=== PATIENT | male | born 1985 | race African-American/Black ===

== ENCOUNTER 2019-09-19 16:21 | Emergency (ER) | payer SELFPAY ==
[~2019-09-19] VITALS: Ht 182.9 cm; Wt 112.9 kg
[2019-09-19] MEDS ORDERED: ASPirin 81 mg TAB PO ONE (16:30)
[2019-09-19] MEDS ORDERED: ACETAMINOPHEN 500 MG TAB PO ONE (16:45)
[2019-09-19] MEDS ORDERED: cefTRIAXone SOD 1,000 MG VL ONE (16:45)
[2019-09-19] MEDS ORDERED: cefTRIAXone W LIDOCAINE 1 GM IM IM ONE (16:45)
[2019-09-19 17:05] LABS: Basophils # (auto) 0 uL; Basophils % (auto) 0.8 % (0.0-2.0); Eosinophils # (auto) 0 uL; Eosinophils % (auto) 0.3 % (0.0-7.0); Hematocrit 47.2 % (41.0-53.0); Hemoglobin 15.9 g/dL (13.5-17.5); Lymphocytes # (auto) 1.4 uL; Lymphocytes % (auto) 37.6 % (10.0-50.0); Mean Corpuscular Hemoglobin 27.5 pg (28.0-32.0); Mean Corpuscular Hgb Conc. 33.7 g/dL (32.0-36.0); Mean Corpuscular Volume 81.6 fL (80.0-100.0); Monocytes # (auto) 0.5 uL; Monocytes % (auto) 14.7 % (0.0-12.0); Neutrophils # (auto) 1.7 uL; Neutrophils % (auto) 46.6 % (37.0-80.0); Nucleated Red Blood Cells % 0.2 %; Platelet Count (auto) 230 10^3/uL (140-450); Red Blood Cells 5.79 10^6/uL (4.5-5.90); Red Cell Distribution Width 13.4 % (11.8-14.3); White Blood Cell 3.7 10^3/uL (4.4-10.8)
[2019-09-19 17:15] LABS: Alanine Aminotransferase 27 U/L (16-61); Albumin 3.2 g/dL (3.4-5.0); Anion Gap 3 (5-15); Blood Urea Nitrogen 8 mg/dL (7-18); Calcium 7.7 mg/dL (8.5-10.1); Carbon Dioxide 28 mmol/L (21-32); Chloride 110 mmol/L (98-107); Glucose 98 mg/dL (74-106); Potassium 3.7 mmol/L (3.5-5.1); Sodium 141 mmol/L (136-145)
[2019-09-19 17:20] LABS: Alkaline Phosphatase 53 U/L (45-117); Aspartate Aminotransferase 27 U/L (15-37); BUN/Creatinine Ratio 7.3; Bilirubin, Total 0.4 mg/dL (0.2-1.0); GFR African American 99 mL/min; GFR Non-African American 82 mL/min; Total Protein 7.2 g/dL (6.4-8.2)
[2019-09-19 19:53] VITALS: BP 118/85
== END 2019-09-19 19:58 | disposition home or self-care (01) ==
LOC: ER 16:21
DX: R07.89 Other chest pain (principal); R06.02 Shortness of breath; R11.2 Nausea with vomiting, unspecified; E44.1 Mild protein-calorie malnutrition; L03.116 Cellulitis of left lower limb; J45.909 Unspecified asthma, uncomplicated
CPT/HCPCS: 36415; 71046; 80053; 84484; 85025; 93005; 96372; 99284; J0696

== ENCOUNTER 2019-09-21 11:19 | Emergency (ER) | payer SELFPAY ==
[~2019-09-21] VITALS: Ht 182.9 cm; Wt 112.9 kg
[2019-09-21 11:29] VITALS: BP 128/80
[2019-09-21] MEDS ORDERED: EPINEPHrine HCL 1 MG/1 ML AMP SC ONE (12:45)
[2019-09-21] MEDS ORDERED: methylPREDNISolone SOD SUCC 125 MG/2 ML VL IM ONE (12:45)
== END 2019-09-21 13:30 | disposition home or self-care (01) ==
LOC: ER 11:24
DX: T78.40XA Allergy, unspecified, initial encounter (principal); J45.909 Unspecified asthma, uncomplicated; X58.XXXA Exposure to other specified factors, initial encounter
CPT/HCPCS: 96372; 99283; J0171; J2930